=== PATIENT | female | born 1975 | race Caucasian/White ===

== ENCOUNTER 2016-11-17 20:57 | Emergency (ER) | payer SELFPAY ==
--- NOTE | 2016-11-18 03:42 | ER ---
ADMIT: 11/17/2016 RM/LOC: ER [facility] MR#: [id number] [address] [facility] [address] [place] [id number] [address] [place] [address] Emergency Room Report SEX: F AGE: 41 : 1975 DATE: 11/17/2016 The patient is a 41-year-old female, developed migraine while shopping tonight associated with nausea and photophobia. Exam remarkable for nontoxic, afebrile, acutely uncomfortable female, no meningismus or focal deficit. Responded well to IV fluids, Zofran, Toradol, DHE, magnesium, Xanax. Headache peaked at 10, discharged less than 3. Art Villegas MD/ modl JOB #: [id number] CC: Art Villegas MD, Attending Physician Nida Marquez MD, Family Physician Ginny Liriano MD
== END 2016-11-17 23:00 | disposition home or self-care (01) ==
LOC: ER 20:57
DX: G43.909 Migraine, unspecified, not intractable, without status migrainosus (principal); Z98.890 Other specified postprocedural states; Z79.899 Other long term (current) drug therapy